=== PATIENT | female | born 1950 | race Caucasian/White ===

== ENCOUNTER 2017-06-14 10:25 | Outpatient (CLI) | payer MEDICARE, BC ==
--- NOTE | 2017-06-14 13:02 | MMO ---
BILATERAL DIGITAL SCREENING MAMMOGRAMS: Date: 06/14/17 HISTORY: 66-year-old female presents for digital screening mammogram. COMPARISON: 06/04/16, 06/03/15, 06/03/14, 05/30/12. FINDINGS: This patient's mammogram was interpreted with the assistance of computer-aided detection. The breasts are heterogeneously dense, which can obscure small masses. Stable bilateral typically be nign calcifications. IMPRESSION: BIRADS 2: Benign Finding(s) Continue routine screening. POS: [facility]
== END 2017-06-14 10:26 | disposition home or self-care (01) ==
LOC: SCSMAMMO 10:25
PROVIDERS: ATTEND Internal Medicine
DX: Z12.31 Encounter for screening mammogram for malignant neoplasm of breast (principal)
CPT/HCPCS: 77067; G0202

== ENCOUNTER 2017-08-17 10:12 | Outpatient (CLI) | payer MEDICARE, BC ==
--- NOTE | 2017-08-17 10:41 | RAD ---
PA AND LATERAL CHEST: History: Dyspnea. FINDINGS: Comparison is made with exam of 04-28-16. Left sided AICD remains in place. The heart size is normal. The lungs are expanded without focal area s of consolidation, pneumothorax, or pleural effusions. There are degenerative changes of the spine. IMPRESSION: No radiographic evidence of acute cardiopulmonary process. POS: [facility]
== END 2017-08-17 10:13 | disposition home or self-care (01) ==
LOC: RAD 10:12
PROVIDERS: ATTEND Internal Medicine Critical Care Medicine
DX: R06.00 Dyspnea, unspecified (principal)
CPT/HCPCS: 71046

== ENCOUNTER 2018-05-10 14:22 | Outpatient (CLI) | payer MEDICARE, BC ==
--- NOTE | 2018-05-10 15:00 | RAD ---
CHEST TWO VIEWS: HISTORY: Dyspnea. COMPARISON: 08/17/2017 FINDINGS: Two views of the chest show a normal sized cardiomediastinal silhouette. The pacemaker is unchanged in position. There is no evidence of consolidation, mass, or pleural effusion. IMPRESSION: No evidence of acute cardiopulmonary disease. POS: [facility]
== END 2018-05-10 14:23 | disposition home or self-care (01) ==
LOC: RAD 14:22
PROVIDERS: ATTEND Internal Medicine Pulmonary Disease
DX: R06.00 Dyspnea, unspecified (principal)
CPT/HCPCS: 36415; 71046; 80053; 80061

== ENCOUNTER 2018-06-15 14:27 | Outpatient (CLI) | payer MEDICARE, BC | END 2018-06-15 14:28 | disposition home or self-care (01) | LOC: BICMAMMO 14:27 | PROVIDERS: ATTEND Internal Medicine | DX: Z12.31 Encounter for screening mammogram for malignant neoplasm of breast (principal) | CPT/HCPCS: 77063; 77067 ==

== ENCOUNTER 2019-02-05 06:58 | Day surgery (SDC) | payer MEDICARE, BC ==
[2019-02-02 08:39] VITALS: BMI 23.0
[2019-02-05] MEDS ORDERED: Lidocaine 1% PF 5 ML VIAL ONE (11:06)
[2019-02-05] MEDS ORDERED: PROPOFOL 200 MG/20 ML VIAL ONE (11:06)
--- NOTE | 2019-02-05 23:18 | OP ---
DATE OF PROCEDURE: 02/05/2019 PREPROCEDURE DIAGNOSES: 1. Prior history of colon polyps. 2. On anticoagulation for atrial fibrillation, held for 48 hours. 3. History of intermittent loose stools with incontinence, likely related to history of irritable bowel syndrome and her metformin. POSTPROCEDURE DIAGNOSES: 1. Mild diverticulosis coli with no inflammation. 2. No signs of colitis. 3. Normal terminal ileum. 4. Four diminutive polyps, three in ascending, one in the distal sigmoid, all less than 4 mm in size, removed by cold snare polypectomy. RECOMMENDATIONS: 1. Await histopathology. 2. Repeat colonoscopy in 5 years depending on overall health at that time. 3. I recommend the patient try a bulking agent such as Citrucel for regular more control of her bowel movements and less incontinence. The other option between her and her primary physician would be to possibly decrease the metformin a little bit, although I would defer that decision to them as her diabetes is really good control at this point in time. ANESTHESIA: TIVA. PROCEDURE IN DETAIL: After the patient was informed of the risks, benefits, and possible complications of endoscopy including perforation, reaction to medication, and aspiration, informed consent was obtained. The patient was brought to endoscopy suite, where she was sedated in gradual fashion. Once she was comfortable, rectal examination was performed, which revealed adequate tone. The endoscope was advanced to the anal canal through the colon. The cecum was identified by ileocecal valve and appendiceal orifice. The terminal ileum was entered briefly and found to be normal. The scope was then slowly removed. The prep was good. There was mild diverticulosis coli throughout the colon. There were 3 small polyps ranging in size from 2 to 4 mm in size, flat in the ascending colon, removed by cold snare polypectomy. There was no bleeding. There was one more polyp noted about 3 mm in size in the distal sigmoid colon by snare polypectomy. Again, there was no bleeding. Retroflexed views were normal except for internal hemorrhoids and some anal papilla. The scope was returned in forward position and removed. Job ID: [id number]
== END 2019-02-05 11:50 | disposition home or self-care (01) ==
LOC: SDC 06:58
PROVIDERS: ATTEND Internal Medicine Gastroenterology
PROC: 0DBK8ZZ Excision of Ascending Colon, Via Natural or Artificial Opening Endoscopic (ICD-10-PCS; principal; 2019-02-05)
PROC: 0DBN8ZZ Excision of Sigmoid Colon, Via Natural or Artificial Opening Endoscopic (ICD-10-PCS; 2019-02-05)
DX: Z12.11 Encounter for screening for malignant neoplasm of colon (principal); D12.2 Benign neoplasm of ascending colon; K63.5 Polyp of colon; K57.30 Diverticulosis of large intestine without perforation or abscess without bleeding; K64.8 Other hemorrhoids; K62.89 Other specified diseases of anus and rectum; I48.91 Unspecified atrial fibrillation; I10 Essential (primary) hypertension; E11.9 Type 2 diabetes mellitus without complications; F32.9 Major depressive disorder, single episode, unspecified; E78.00 Pure hypercholesterolemia, unspecified; Z79.01 Long term (current) use of anticoagulants; Z79.82 Long term (current) use of aspirin; Z79.84 Long term (current) use of oral hypoglycemic drugs; Z79.899 Other long term (current) drug therapy; Z80.0 Family history of malignant neoplasm of digestive organs; Z86.010 Personal history of colon polyps; Z95.0 Presence of cardiac pacemaker
CPT/HCPCS: 88305; 93005; 93010

== ENCOUNTER 2019-04-19 18:07 | Emergency (ER) | payer MEDICARE, BC ==
--- NOTE | 2019-04-19 19:24 | CT ---
CT head noncontrast HISTORY: Fall. Head injury. FINDINGS: There is no evidence of acute intracranial hemorrhage or infarct. The ventricles appear nor mal in size, shape and position. Old lacunar infarct left basal ganglia. Mild diffuse atrophy. There is no mass effect or shift of midline structures. IMPRESSION: No acute intracranial abnormalities are demonstrated.
--- NOTE | 2019-04-19 19:30 | CT ---
CT face noncontrast HISTORY: Fall. Facial injury. FINDINGS: The mandible, globes, and zygomatic arches are intact. Homogeneous soft tissue density fill s each maxillary sinus. There is no extension into the nasal passages or ethmoid air cells. No air-fluid levels. No acute fracture or dislocation are apparent. IMPRESSION: No acute osseous abnormalities are demonstrated. Chronic appearing mucosal opacification of the maxillary sinuses.
--- NOTE | 2019-04-19 19:33 | CT ---
CT cervical spine noncontrast HISTORY: Fall. Neck injury. FINDINGS: Vertebral body heights and alignment are maintained. Mild osteophytosis. Cervicothoracic ju nction is intact. No acute fracture or dislocation. IMPRESSION: No acute osseous abnormalities are demonstrated.
--- NOTE | 2019-04-19 19:34 | RAD ---
Right knee 4 views HISTORY: Fall. Knee injury. FINDINGS: Joint spaces are preserved. No acute fracture, dislocation, or aggressive osseous erosions. Mild osteophytosis. Calcification over the arterial structures. IMPRESSION: No acute osseous abnormalities are demonstrated. Atherosclerosis.
--- NOTE | 2019-04-19 19:37 | RAD ---
Right wrist 3 views HISTORY: Fall. Right wrist injury. FINDINGS: Scaphoid waist and ulnar styloid are intact. Mild osteophytosis throughout the wrist. Subco rtical cyst formation most pronounced at the base of the lunate. No acute fracture, dislocation, or aggressive osseous erosions. IMPRESSION: Degenerative changes. No acute osseous abnormalities are demonstrated.
[2019-04-19] MEDS ORDERED: Adacel (T-DAP) 0.5 ML SYRINGE ONE (21:02)
== END 2019-04-19 21:12 | disposition home or self-care (01) ==
LOC: ERS 18:07
DX: R51 Headache (principal); M25.531 Pain in right wrist; I48.91 Unspecified atrial fibrillation; E11.9 Type 2 diabetes mellitus without complications; Z23 Encounter for immunization; W01.198A Fall on same level from slipping, tripping and stumbling with subsequent striking against other object, initial encounter
CPT/HCPCS: 70450; 70486; 72125; 90471; 90715

== ENCOUNTER 2019-06-21 14:08 | Outpatient (CLI) | payer MEDICARE, BC ==
--- NOTE | 2019-06-21 15:06 | MMO ---
Bilateral MAMMO Bilat Screen [facility]. CLINICAL HISTORY: Patient is 68 years old and is seen for screening. The patient has no family history of breast cancer. The patient has no personal history of cancer. VIEWS: The views performed were: bilateral craniocaudal with tomosynthesis; bilateral mediolateral oblique with tomosynthesis; and left mediolateral oblique. This study has been interpreted with the assistance of computer-aided detection. MAMMOGRAM FINDINGS: The breasts are heterogeneously dense, which could obscure a lesion on mammography. There are no suspicious masses, suspicious calcifications, or new areas of architectural distortion. IMPRESSION: THERE IS NO MAMMOGRAPHIC EVIDENCE OF MALIGNANCY. A ROUTINE FOLLOW-UP MAMMOGRAM IN 1 YEAR IS RECOMMENDED. THE RESULTS OF THIS EXAM WERE SENT TO THE PATIENT. ACR BI-RADS Category 1 - Negative MAMMOGRAPHY NOTE: 1. A negative mammogram report should not delay a biopsy if a dominant of clinically suspicious mass is present. 2. Approximately 10% to 15% of breast cancers are not detected by mammography. 3. Adenosis and dense breasts may obscure an underlying neoplasm. Reported by: Neris TRINIDAD Electonically Signed: [id number]
== END 2019-06-21 14:09 | disposition home or self-care (01) ==
LOC: BICMAMMO 14:08
PROVIDERS: ATTEND Internal Medicine
DX: Z12.31 Encounter for screening mammogram for malignant neoplasm of breast (principal)
CPT/HCPCS: 77063; 77067

== ENCOUNTER 2020-06-23 08:32 | Outpatient (CLI) | payer MEDICARE, BC ==
--- NOTE | 2020-06-23 10:21 | MMO ---
Bilateral MAMMO Bilat Screen [facility]. CLINICAL HISTORY: Patient is 69 years old and is seen for screening. The patient has no family history of breast cancer. The patient has no personal history of cancer. The patient has a history of left Excisional Biopsy in 1990 - benign. VIEWS: The views performed were: bilateral craniocaudal with tomosynthesis and bilateral mediolateral oblique with tomosynthesis. FILMS COMPARED: The present examination has been compared to prior imaging studies performed at [facility] on 06/14/2017, at [facility] on 06/21/2019, and at [facility] on 06/03/2015 and 06/04/2016. This study has been interpreted with the assistance of computer-aided detection. MAMMOGRAM FINDINGS: The breasts are heterogeneously dense, which could obscure a lesion on mammography. There are stable calcifications seen in both breasts. There are no suspicious masses, suspicious calcifications, or new areas of architectural distortion. IMPRESSION: THERE IS NO MAMMOGRAPHIC EVIDENCE OF MALIGNANCY. A ROUTINE FOLLOW-UP MAMMOGRAM IN 1 YEAR IS RECOMMENDED. THE RESULTS OF THIS EXAM WERE SENT TO THE PATIENT. ACR BI-RADS Category 2 - Benign finding MAMMOGRAPHY NOTE: 1. A negative mammogram report should not delay a biopsy if a dominant of clinically suspicious mass is present. 2. Approximately 10% to 15% of breast cancers are not detected by mammography. 3. Adenosis and dense breasts may obscure an underlying neoplasm. Reported by: SHEILA SORIANO MD Electonically Signed: [id number]
== END 2020-06-23 08:33 | disposition home or self-care (01) ==
LOC: BICMAMMO 08:32
PROVIDERS: ATTEND Internal Medicine
DX: Z12.31 Encounter for screening mammogram for malignant neoplasm of breast (principal); Z91.89 Other specified personal risk factors, not elsewhere classified
CPT/HCPCS: 77063; 77067

== ENCOUNTER 2021-06-24 09:26 | Outpatient (CLI) | payer MEDICARE, BC | END 2021-06-24 09:27 | disposition home or self-care (01) | LOC: BICMAMMO 09:26 | PROVIDERS: ATTEND Internal Medicine | DX: Z12.31 Encounter for screening mammogram for malignant neoplasm of breast (principal) | CPT/HCPCS: 77063; 77067 ==

== ENCOUNTER 2022-05-11 11:44 | Outpatient (CLI) | payer MEDICARE, BC | END 2022-05-11 11:45 | disposition home or self-care (01) | LOC: RAD 11:44 | PROVIDERS: ATTEND Internal Medicine | DX: D86.9 Sarcoidosis, unspecified (principal) | CPT/HCPCS: 71046 ==

== ENCOUNTER 2022-06-29 10:46 | Outpatient (CLI) | payer MEDICARE, BC | END 2022-06-29 10:47 | disposition home or self-care (01) | LOC: BICMAMMO 10:46 | PROVIDERS: ATTEND Internal Medicine | DX: Z12.31 Encounter for screening mammogram for malignant neoplasm of breast (principal); Z91.89 Other specified personal risk factors, not elsewhere classified | CPT/HCPCS: 77063; 77067 ==

== ENCOUNTER 2023-06-30 13:24 | Outpatient (CLI) | payer MEDICARE, BC | END 2023-06-30 13:25 | disposition home or self-care (01) | LOC: BICMAMMO 13:24 | PROVIDERS: ATTEND Internal Medicine | DX: Z12.31 Encounter for screening mammogram for malignant neoplasm of breast (principal); M85.89 Other specified disorders of bone density and structure, multiple sites; Z78.0 Asymptomatic menopausal state; Z91.89 Other specified personal risk factors, not elsewhere classified | CPT/HCPCS: 77063; 77067; 77080 ==

== ENCOUNTER 2024-05-09 10:54 | Outpatient (CLI) | payer MEDICARE, BC | END 2024-05-09 10:55 | disposition home or self-care (01) | LOC: RAD 10:54 | PROVIDERS: ATTEND Internal Medicine | DX: D86.9 Sarcoidosis, unspecified (principal) | CPT/HCPCS: 71046 ==

== ENCOUNTER 2024-07-02 10:46 | Outpatient (CLI) | payer MEDICARE, BC | END 2024-07-02 10:47 | disposition home or self-care (01) | LOC: BICMAMMO 10:46 | PROVIDERS: ATTEND Internal Medicine | DX: Z12.31 Encounter for screening mammogram for malignant neoplasm of breast (principal); Z91.89 Other specified personal risk factors, not elsewhere classified | CPT/HCPCS: 77063; 77067 ==

== ENCOUNTER 2024-07-06 06:38 | Day surgery (SDC) | payer MEDICARE, BC ==
[2024-07-05 11:08] VITALS: BMI 24.5
[2024-07-06] MEDS ORDERED: PROPOFOL 40 ML ONE (08:10)
[2024-07-06] MEDS ORDERED: Lidocaine 2% PF 5 ML VIAL ONE (08:37)
[2024-07-06 08:46] LABS: #Basophils 0.03 10x3/uL (0.0-0.2); %Basophils 0.4 % (0.0-1.0); %Eosinophils 0.6 % (0.0-10.0); %Lymphocytes 21.2 % (21.0-51.0); %Monocytes 8.2 % (0.0-10.0); %Neutrophils 69.3 % (42.0-75.0); Hematocrit 36.9 % (36.0-47.0); Mean Corpuscular HGB CONC 35.2 g/dL (32.0-36.0); Mean Corpuscular Hemoglobin 28.8 pg (27.0-31.0); Mean Corpuscular Volume 81.8 fL (78.0-98.0); Mean Platelet Volume 11.3 fL (7.4-10.4); Platelet Count 247 10x3/uL (130-400); RBC Distribution Width 12.9 % (11.5-14.5); Red Blood Cell (RBC) Count 4.51 mill/uL (4.20-5.40)
[2024-07-06] MEDS ORDERED: PROPOFOL 20 ML ONE (08:52)
[2024-07-06 09:00] LABS: Anion Gap 17 mmol/L (10-20); BUN (Urea Nitrogen) 12 mg/dL (9.8-20.1); Calc. Creatinine Clearance 64 mL/min (70-130); Calcium 9.5 mg/dL (7.8-10.44); Carbon Dioxide 24 mmol/L (23-31); Chloride 99 mmol/L (98-107); Estimated GFR 87; Glucose 232 mg/dL (83-110); Potassium 3.7 mmol/L (3.5-5.1); Sodium 136 mmol/L (136-145)
== END 2024-07-06 10:30 | disposition home or self-care (01) ==
LOC: SDC 06:38
PROVIDERS: ATTEND Internal Medicine Gastroenterology
PROC: 0DBN8ZZ Excision of Sigmoid Colon, Via Natural or Artificial Opening Endoscopic (ICD-10-PCS; principal; 2024-07-06)
PROC: 0DBL8ZZ Excision of Transverse Colon, Via Natural or Artificial Opening Endoscopic (ICD-10-PCS; 2024-07-06)
DX: Z12.11 Encounter for screening for malignant neoplasm of colon (principal); D12.3 Benign neoplasm of transverse colon; D12.5 Benign neoplasm of sigmoid colon; Z86.0100 Personal history of colon polyps, unspecified; K57.30 Diverticulosis of large intestine without perforation or abscess without bleeding; K64.8 Other hemorrhoids; E78.00 Pure hypercholesterolemia, unspecified; I10 Essential (primary) hypertension; E11.9 Type 2 diabetes mellitus without complications; I48.91 Unspecified atrial fibrillation; Z79.01 Long term (current) use of anticoagulants; Z79.899 Other long term (current) drug therapy; Z79.82 Long term (current) use of aspirin
CPT/HCPCS: 45385; 80048; 85025; J2704; 36415; 88305

== ENCOUNTER 2025-07-02 12:45 | Outpatient (CLI) | payer MEDICARE, BC | END 2025-07-02 12:46 | disposition home or self-care (01) | LOC: BICMAMMO 12:45 | PROVIDERS: ATTEND Internal Medicine | DX: Z12.31 Encounter for screening mammogram for malignant neoplasm of breast (principal); Z78.0 Asymptomatic menopausal state; Z91.89 Other specified personal risk factors, not elsewhere classified; M85.851 Other specified disorders of bone density and structure, right thigh; M85.852 Other specified disorders of bone density and structure, left thigh | CPT/HCPCS: 77063; 77067; 77080 ==